=== PATIENT | female | born 1975 | race Hispanic/Latino ===

== ENCOUNTER 2017-05-01 12:23 | Emergency (ER) | payer SELFPAY ==
[~2017-05-01] VITALS: Ht 165.1 cm; Wt 81.0 kg
[~2017-05-01 12:23] MED LIST: AMOXICILLIN500 MG PO; FLEXERIL PO; ULTRAM50 M1 PO; ZITHROMAX250 MG OR
[2017-05-01] MEDS ORDERED: CEPHALEXIN500 M1 PO (14:27)
[2017-05-01 14:29] VITALS: BP 128/70
== END 2017-05-01 14:40 | disposition home or self-care (01) | DRG 605 ==
LOC: ED 12:23
PROC: 0HQKXZZ Repair Right Lower Leg Skin, External Approach (ICD-10-PCS; principal; 2017-05-01)
DX: S81.811A Laceration without foreign body, right lower leg, initial encounter (principal); W25.XXXA Contact with sharp glass, initial encounter; Y93.E9 Activity, other interior property and clothing maintenance; Y92.009 Unspecified place in unspecified non-institutional (private) residence as the place of occurrence of the external cause

== ENCOUNTER 2017-08-19 08:21 | Emergency (ER) | payer SELFPAY ==
[~2017-08-19] VITALS: Ht 165.1 cm; Wt 70.0 kg
[~2017-08-19 08:21] MED LIST changes: +CEPHALEXIN500 M1 PO
[2017-08-19 08:51] LABS: HEMATOCRIT 45.7 % (37.0-47.0); HEMOGLOBIN 15.5 g/dl (12.0-16.0); IMMATURE GRANULOCYTES 0.3 % (0.0-1.0); MEAN CELL VOLUME 94.6 fL CALC (80.0-100.0); MEAN CORPUSCULAR HGB 32.1 pG CALC (26.0-32.0); MEAN CORPUSCULAR HGB CONC 33.9 g/L CALC (32.0-36.0); NEUT# 5.97 thou/uL (2.00-7.15); RED BLOOD COUNT 4.83 mill/uL (4.20-5.60); RED CELL DISTRI WIDTH 11.7 % (11.5-15.5)
[2017-08-19] MEDS ORDERED: ANTIVERT PO (08:51)
[2017-08-19] MEDS ORDERED: FLEXERIL PO (08:51)
[2017-08-19] MEDS ORDERED: NAPROXEN DR500 MG PO (08:51)
[2017-08-19] MEDS ORDERED: ZOFRAN ODT4 MG PO (08:51)
[2017-08-19 09:03] LABS: ALBUMIN 4.4 g/dL (3.2-5.0); ALKALINE PHOSPHATASE 60 u/l (38-126); ANION GAP 18 (6-22 (CALC)); BILIRUBIN, TOTAL 0.7 mg/dL (0.0-1.4); BUN 15 mg/dL (7-17); BUN/CREATININE RATIO 18 (12-20 (CALC)); CARBON DIOXIDE 22 mmol/l (22-30); CHLORIDE 104 mmol/l (95-108); CREATININE 0.9 mg/dL (0.5-1.0); GFR > 60 ML/MIN (>=60 (CALC)); GFR FOR AFR.AMER. > 60 ML/MIN (>=60 (CALC)); POTASSIUM 4.2 mmol/l (3.5-5.1); SGOT/AST 16 u/l (14-36); SGPT/ALT 32 u/l (9-52); SODIUM 139 mmol/l (137-146); TOTAL PROTEIN 7.4 g/dL (6.3-8.2)
[2017-08-19] MEDS ORDERED: TRAMADOL HYDROC50 MG PO (09:53)
[2017-08-19 10:07] VITALS: BP 112/61
== END 2017-08-19 10:07 | disposition home or self-care (01) | DRG 149 ==
LOC: ED 08:21
PROVIDERS: Emergency Medicine
DX: R42 Dizziness and giddiness (principal); G89.29 Other chronic pain; M54.9 Dorsalgia, unspecified

== ENCOUNTER → 2023-10-20 | Day surgery (SDC) | payer OTHER ==
[~2023-10-20] VITALS: Ht 165.1 cm; Wt 77.6 kg
[~2023-10-20] MED LIST changes: +ANTIVERT PO; +LACTATED RINGER'S 1,000 ML IV ONE; +LIDOCAINE HCL 2% 2ML SDV IV ONE; +NAPROXEN DR500 MG PO; +PAROXETINE PO; +PROPOFOL 200 MG/20 ML VIAL IV ONE; +TRAMADOL HYDROC50 MG PO; +ZOFRAN ODT4 MG PO
[2023-10-20 10:22] VITALS: BP 134/76
== END | disposition home or self-care (01) | DRG 951 ==
LOC: ORM 10-19 07:30 → ENDO 07:44 → ORM 08:45 → ENDO 09:40
PROVIDERS: ATTEND Surgery
PROC: 0DJD8ZZ Inspection of Lower Intestinal Tract, Via Natural or Artificial Opening Endoscopic (ICD-10-PCS; principal; 2023-10-20)
DX: Z12.11 Encounter for screening for malignant neoplasm of colon (principal); K64.8 Other hemorrhoids; Z80.0 Family history of malignant neoplasm of digestive organs